=== PATIENT | male | born 1980 | race Caucasian/White ===

== ENCOUNTER 2017-03-19 06:40 | Emergency (ER) | payer SELFPAY ==
[~2017-03-19] VITALS: Ht 165.1 cm; Wt 73.0 kg
[2017-03-19] MEDS ORDERED: HYDROCODONE/ACETAMINOPHEN 5/325MG TABLET PO ONE (11:00)
[2017-03-19 11:52] VITALS: BP 116/82
== END 2017-03-19 12:23 | disposition home or self-care (01) ==
LOC: ER 06:48
DX: S92.412A Displaced fracture of proximal phalanx of left great toe, initial encounter for closed fracture (principal); X58.XXXA Exposure to other specified factors, initial encounter; Y93.89 Activity, other specified; Y92.89 Other specified places as the place of occurrence of the external cause; Y99.8 Other external cause status
CPT/HCPCS: 73630; 99284; Z7610